=== PATIENT | female | born 1980 | race Asian ===

== ENCOUNTER 2016-09-22 12:58 | Emergency (ER) | payer OTHER ==
[~2016-09-22] VITALS: Ht 160 cm; Wt 113.4 kg
[2016-09-22] MEDS ORDERED: LISI20TA31 OR (13:06)
[2016-09-22 13:39] LABS: PLATELET COUNT 348 K/uL (152-353)
[2016-09-22 13:54] LABS: POTASSIUM 3.9 mmol/L (3.6-5.2); SODIUM 136 mmol/L (136-145)
== END 2016-09-22 14:14 | disposition home or self-care (01) ==
LOC: ED 12:58
DX: M25.472 Effusion, left ankle (principal); M25.475 Effusion, left foot; I73.9 Peripheral vascular disease, unspecified; M77.9 Enthesopathy, unspecified
CPT/HCPCS: 36415; 80053; 84550; 85027; 99283

== ENCOUNTER 2016-12-02 10:43 | Emergency (ER) | payer OTHER ==
[~2016-12-02] VITALS: Ht 152.4 cm; Wt 115.7 kg
[~2016-12-02 10:43] MED LIST: LISI20TA31 OR
[2016-12-02 11:42] LABS: POTASSIUM 4.2 mmol/L (3.6-5.2); SODIUM 137 mmol/L (136-145)
[2016-12-02 11:51] LABS: PLATELET COUNT 295 K/uL (152-353)
[2016-12-02 12:50] VITALS: BP 147/91; TEMP 97.8
== END 2016-12-02 12:50 | disposition home or self-care (01) ==
LOC: ED 10:43
DX: L50.9 Urticaria, unspecified (principal)
CPT/HCPCS: 36415; 80053; 85027; 96374; 99284; J2930

== ENCOUNTER 2017-06-27 10:37 | Emergency (ER) | payer OTHER ==
[~2017-06-27] VITALS: Ht 154.9 cm; Wt 117.9 kg
[2017-06-27 10:45] VITALS: BP 145/67; TEMP 98.1
== END 2017-06-27 12:55 | disposition home or self-care (01) ==
LOC: ED 10:37
DX: M79.672 Pain in left foot (principal)